=== PATIENT | female | born 1995 | race African-American/Black ===

== ENCOUNTER 2019-06-19 16:13 | Inpatient (IN) ==
[2019-06-19] MEDS ORDERED: MEPERIDINE 50 MG/1 ML VIAL IV PRN (16:30)
[2019-06-19] MEDS ORDERED: BUTORPHANOL 2 MG/ML VIAL IV PRN (16:30)
[2019-06-19 16:57] LABS: Eosinophils % 0.2 % (0.00-10.9); Hematocrit 38.2 VOL% (35.7-47.0); Hemoglobin 12.8 GM/DL (12.0-16.0); Immature Granulocytes % 0.5 %; Immature Granulocytes Absolute 0.03 #; Lymphocytes # 1.5 10*3/uL (1.4-4.0); Mean Corpuscular HGB Conc 33.5 GM/DL (32-36); Mean Corpuscular Volume 88.2 FL (87-102); Mean Platelet Volume 11.9 FL (9.6-12.0); Monocytes % 14.8 % (1.7-12.7); Neutrophils % 56.5 % (38.7-73.9); Platelet Count 134 T/CUMM (130-400); Red Blood Count 4.33 MC/CUMM (3.8-5.5); Red Cell Distribution Width 14.6 % (9.3-17.3); White Blood Count 5.5 T/CUMM (4-12)
[2019-06-19 17:21] LABS: Alanine Aminotransferase 23 U/L (13-56); Albumin 2.9 G/DL (3.4-5.0); Alkaline Phosphatase 70 U/L (45-117); Aspartate Amino Transferase 23 U/L (0-37); Bilirubin,Total < 0.39 MG/DL (0.2-1.0); Blood Urea Nitrogen 6 MG/DL (7-18); Calcium 8.7 MG/DL (8.5-10.1); Estimated Glom Filtration Rate 163 ML/MIN; Glucose 83 MG/DL (74-106); Total Protein 6.6 G/DL (6.4-8.3)
[2019-06-19] MEDS: ACETAMINOPHEN 325 MG TABLET PO PRN (19:22)
[2019-06-20] MEDS: ACETAMINOPHEN 325 MG TABLET PO PRN (01:06)
[2019-06-20] MEDS: ONDANSETRON 4 MG/2 ML VIAL IV PRN ×2 (02:10→11:08)
[2019-06-20] MEDS: LACTATED RINGERS 1,000 ML IV SCH ×3 (04:12→06:25)
[2019-06-20] MEDS ORDERED: diphenhydrAMINE 50 MG/1 ML VIAL IV PRN (04:52)
[2019-06-20] MEDS ORDERED: hydrOXYzine HCL 25 MG/1 ML VIAL IM PRN (04:52)
[2019-06-20] MEDS ORDERED: ePHEDrine 50 MG/ML AMP IV PRN (04:52)
[2019-06-20] MEDS ORDERED: NALOXONE 0.4 MG/ML VIAL IV PRN (04:52)
[2019-06-20] MEDS ORDERED: PROMETHAZINE 25 MG/1 ML VIAL IM PRN (04:52)
[2019-06-20] MEDS ORDERED: fentaNYL 2 MCG/ROPIV 0.2% EPID 100 ML EPIDURAL SCH (05:00)
[2019-06-20] MEDS ORDERED: AMPICILLIN INJ 2,000 MG in SODIUM CHLORIDE 0.9% 100 ML IV SCH (05:00)
[2019-06-20] MEDS ORDERED: CITRIC ACID/SODIUM CITRATE 30 ML UDCUP PO ONE (05:08)
[2019-06-20] MEDS ORDERED: FAMOTIDINE 20 MG/2 ML VIAL IV ONE (05:08)
[2019-06-20] MEDS ORDERED: CITRIC ACID/SODIUM CITRATE 30 ML UDCUP ONE (05:10)
[2019-06-20] MEDS ORDERED: CARBOPROST TROMETHAMINE 250 MCG/ML AMP IM ONE (07:06)
[2019-06-20] MEDS ORDERED: METHYLERGONOVINE 0.2 MG/1 ML AMP ONE (07:06)
[2019-06-20] MEDS ORDERED: TRANEXAMIC ACID 1,000 MG/10 ML VIAL ONE (07:06)
[2019-06-20] MEDS ORDERED: OXYTOCIN/LR 20 UNIT/1,000 ML BAG IV ONE ×2 (07:06→08:09)
[2019-06-20] MEDS ORDERED: miSOPROStoL 200 MCG TABLET ONE (07:06)
[2019-06-20] MEDS ORDERED: LIDOCAINE 1% 50 ML VIAL ONE (07:16)
[2019-06-20] MEDS ORDERED: LIDOCAINE MPF 2% /EPI 20 ML VIAL ONE (07:36)
[2019-06-20] MEDS ORDERED: ceFAZolin 2,000 MG in PREMIX 1 EACH IV ONE (07:37)
[2019-06-20] MEDS ORDERED: ONDANSETRON 4 MG/2 ML VIAL IV PRN (08:09)
[2019-06-20] MEDS ORDERED: RHO(D) IMMUNE GLOBULIN 300 MCG SYRINGE IM ONE (08:09)
[2019-06-20] MEDS ORDERED: ACETAMINOPHEN 325 MG TABLET PO PRN (08:09)
[2019-06-20 08:16] LABS: Cord Arterial Blood HCO3 15.8 MMOL/L
[2019-06-20 08:20] LABS: Cord Venous Blood HCO3 17.5 MMOL/L; Cord Venous Blood PCO2 59.3 MMHG; Cord Venous Blood PO2 24.5
[2019-06-20] MEDS ORDERED: ONDANSETRON 4 MG/2 ML VIAL ONE (08:25)
[2019-06-20] MEDS ORDERED: MORPHINE 10 MG/10 ML VIAL ONE (08:25)
[2019-06-20] MEDS ORDERED: ePHEDrine 50 MG/ML AMP ONE (08:25)
[2019-06-20] MEDS ORDERED: KETOROLAC 30 MG/1 ML VIAL ONE (08:26)
[2019-06-20] MEDS ORDERED: ceFAZolin 1,000 MG in SYRINGE 1 EACH IV SCH (08:30)
[2019-06-20] MEDS ORDERED: LACTATED RINGERS 1,000 ML IV SCH (08:30)
[2019-06-20 11:37] LABS: Apearance,Urine CLEAR (Clear); Bilirubin,Urine Negative (Negative); Blood, Urine Moderate mg/dL (Negative); Glucose,Urine (UA) 50 mg/dL (Negative); Ketones,Urine Negative (Negative); Mucus,Urine Occasional /LPF (Occasional); Nitrite,Urine Negative (Negative); Protein,Urine Negative; RBC,Urine 131 /HPF (0-4); Urine Color Yellow (Yellow); Urine Specific Gravity 1.016 (1.001-1.035); Urine Urobilinogen < 2.0 EU/DL (0.2-1.0); WBC,Urine 5 /HPF (0-6)
[2019-06-20] MEDS: KETOROLAC 30 MG/1 ML VIAL IV SCH ×2 (11:45→18:44)
[2019-06-20] MEDS: DOCUSATE SODIUM 100 MG CAPSULE PO SCH ×2 (12:09→21:48)
[2019-06-20] MEDS: MULTIVITAMIN (PRENATAL) TABLET PO SCH (12:09)
[2019-06-20] MEDS ORDERED: diphenhydrAMINE 2% CREAM 28 GM TUBE TOP PRN (14:08)
[2019-06-20 15:55] LABS: Basophils % 0.2 % (0.0-0.8); Hematocrit 38.6 VOL% (35.7-47.0); Hemoglobin 12.6 GM/DL (12.0-16.0); Immature Granulocytes % 0.6 %; Immature Granulocytes Absolute 0.07 #; Lymphocytes # 0.7 10*3/uL (1.4-4.0); Lymphocytes % 5.6 % (21.3-54.2); Mean Corpuscular HGB Conc 32.6 GM/DL (32-36); Mean Corpuscular Volume 89.6 FL (87-102); Mean Platelet Volume 11.8 FL (9.6-12.0); Monocytes % 8.8 % (1.7-12.7); Neutrophils % 84.8 % (38.7-73.9); Platelet Count 116 T/CUMM (130-400); Red Blood Count 4.31 MC/CUMM (3.8-5.5); Red Cell Distribution Width 14.5 % (9.3-17.3); White Blood Count 12.3 T/CUMM (4-12)
[2019-06-20] MEDS: ceFAZolin 1,000 MG in SYRINGE 1 EACH IV SCH (16:03)
[2019-06-21] MEDS: KETOROLAC 30 MG/1 ML VIAL IV SCH ×2 (00:01→06:27)
[2019-06-21] MEDS: ceFAZolin 1,000 MG in SYRINGE 1 EACH IV SCH (00:01)
[2019-06-21 06:30] LABS: Basophils % 0.2 % (0.0-0.8); Hematocrit 32.4 VOL% (35.7-47.0); Hemoglobin 10.8 GM/DL (12.0-16.0); Immature Granulocytes % 0.4 %; Immature Granulocytes Absolute 0.05 #; Lymphocytes # 1.4 10*3/uL (1.4-4.0); Lymphocytes % 12.2 % (21.3-54.2); Mean Corpuscular HGB Conc 33.3 GM/DL (32-36); Mean Corpuscular Volume 89.3 FL (87-102); Mean Platelet Volume 12.3 FL (9.6-12.0); Monocytes % 12.6 % (1.7-12.7); Neutrophils % 74.6 % (38.7-73.9); Platelet Count 123 T/CUMM (130-400); Red Blood Count 3.63 MC/CUMM (3.8-5.5); Red Cell Distribution Width 14.7 % (9.3-17.3); White Blood Count 11.5 T/CUMM (4-12)
[2019-06-21] MEDS: DOCUSATE SODIUM 100 MG CAPSULE PO SCH ×2 (08:59→20:48)
[2019-06-21] MEDS: MAGNESIUM HYDROXIDE SUSP 30 ML UDCUP PO PRN ×2 (08:59→20:48)
[2019-06-21] MEDS: MULTIVITAMIN (PRENATAL) TABLET PO SCH (09:00)
[2019-06-21] MEDS ORDERED: diphenhydrAMINE CAP 25 MG CAPSULE PO PRN (18:32)
[2019-06-21] MEDS ORDERED: diphenhydrAMINE CAP 25 MG CAPSULE ONE (18:37)
[2019-06-21] MEDS: SIMETHICONE CHEW 80 MG TABLET PO PRN (20:49)
[2019-06-21] MEDS: IBUPROFEN 800 MG TABLET PO PRN (20:49)
[2019-06-22] MEDS: IBUPROFEN 800 MG TABLET PO PRN ×2 (06:12→20:11)
[2019-06-22] MEDS: DOCUSATE SODIUM 100 MG CAPSULE PO SCH ×2 (08:22→20:11)
[2019-06-22] MEDS: MULTIVITAMIN (PRENATAL) TABLET PO SCH (08:22)
[2019-06-22] MEDS: MAGNESIUM HYDROXIDE SUSP 30 ML UDCUP PO PRN (12:59)
[2019-06-23] MEDS: MAGNESIUM HYDROXIDE SUSP 30 ML UDCUP PO PRN (09:05)
[2019-06-23] MEDS: MULTIVITAMIN (PRENATAL) TABLET PO SCH (09:05)
[2019-06-23] MEDS: DOCUSATE SODIUM 100 MG CAPSULE PO SCH (09:05)
[2019-06-23] MEDS: SIMETHICONE CHEW 80 MG TABLET PO PRN (09:06)
[2019-06-23] MEDS ORDERED: DIPH/TET/ACEL PERT BOOSTER VACCINE 0.5 ML VIAL IM ONE (09:58)
[2019-06-23] MEDS: IBUPROFEN 800 MG TABLET PO PRN (10:27)
[2019-06-23 10:36] VITALS: BP 125/72
== END 2019-06-23 11:25 | disposition home or self-care (01) | DRG 788 ==
LOC: N.LDOUT 16:13 → N.LD 16:17 → N.OB 06-20 11:35
PROVIDERS: ADMIT Obstetrics & Gynecology; ATTEND Obstetrics & Gynecology
PROC: LDCSECT (ICD-10-PCS; 2019-06-20 07:30)